=== PATIENT | male | born 1985 | race Caucasian/White ===

== ENCOUNTER 2016-08-30 08:11 | Emergency (ER) | payer BC ==
[2016-08-30 08:23] VITALS: BP 134/87
--- NOTE | 2016-08-30 08:42 | UC ---
Abdominal Pain Male HPI - HPI Summary HPI Summary: The patient comes in today for: 1. Suprapubic abdominal pain: Onset: 2 PM yesterday. Palliative/provocative: Standing and having a bowel movement makes it better. Laying down (back or belly) made it worse. Quality: ache Region: Suprapubic, it radiates to the back and bilateral scrotum. Severity: 3-5/10 Time: Comes and goes Associated symptoms: Dysuria: None. Hematuria: None. Bowel habit change: None. Last BM was this AM--More loose, but not liquid. It was yellow, "paper-looking--likes sheets of paper." Fever: None. Travel: not out of the state. * - History of Current Complaint Chief Complaint: UCAbdominalPain Stated Complaint: ABDOMINAL PAIN Time Seen by Provider: 08/30/16 08:35 Hx Obtained From: Patient - Allergies/Home Medications Allergies/Adverse Reactions: Allergies Allergy/AdvReac Type Severity Reaction Status Date / Time No Known Allergies Allergy Verified 08/30/16 08:18 Home Medications: Home Medications Calcium Carbonate CHEW TAB* [Tums*] 1,000 mg PO ONCE 08/30/16 [History Confirmed 08/30/16] Sertraline* [Zoloft*] 50 mg PO DAILY 08/30/16 [History Confirmed 08/30/16] PMH/Surg Hx/FS Hx/Imm Hx Previously Healthy: No Endocrine History Of: Denies: Diabetes, Thyroid Disease, Hyperthyroidism, Hypothyroidism, Dyslipidemia Cardiovascular History Of: Denies: Cardiac Disorders, Hypertension, Pacemaker/ICD, Myocardial Infarction , Congestive Heart Failure, Atrial Fibrillation, Deep Vein Thrombosis, Bleeding Disorders Respiratory History Of: Denies: COPD, Asthma, Bronchitis, Pneumonia, Pulmonary Embolism GI/ History Of: Denies: Gastroesophageal Reflux, Ulcer, Gastrointestinal Bleed, Gall Bladder Disease, Kidney Stones, Diverticulitis, Renal Disease, Urosepsis Neurological History Of: Denies: TIA, CVA, Dementia, Seizures, Migraine Psychological History Of: Reports: Depression Denies: Anxiety, Bipolar Disorder, Schizophrenia, Post Traumatic Stress Disorder Cancer History Of: Denies: Lung Cancer, Colorectal Cancer, Breast Cancer, Prostate Cancer, Cervical Cancer Other History Of: Negative For: HIV, Hepatitis B, Hepatitis C, Anticoagulant Therapy - Surgical History Surgical History: None - Family History Known Family History: Positive: Cardiac Disease, Hypertension - Social History Occupation: Employed Full-time Alcohol Use: Rare Substance Use Type: None Smoking Status (MU): Never Smoked Tobacco - Immunization History Most Recent Influenza Vaccination: Not the Season Review of Systems Constitutional: Negative Skin: Negative Eyes: Negative ENT: Negative Respiratory: Negative Cardiovascular: Negative Gastrointestinal: Abdominal Pain Genitourinary: Negative All Other Systems Reviewed And Are Negative: Yes Physical Exam Triage Information Reviewed: Yes Appearance: Well-Appearing, No Pain Distress, Well-Nourished Vital Signs: Initial Vital Signs Temp 98.4 F 08/30/16 08:14 Pulse 94 08/30/16 08:14 Resp 16 08/30/16 08:14 BP 134/87 08/30/16 08:14 Pulse Ox 99 08/30/16 08:14 Vital Signs Reviewed: Yes Eyes: Positive: Conjunctiva Clear. Negative: Discharge ENT: Positive: Hearing grossly normal. Negative: Pharyngeal erythema, Nasal congestion, Nasal drainage, TM bulging, TM dull, TM red Dental: Negative: Gross Decay/Caries @, Dental Fracture @ Neck: Positive: Supple, Nontender, No Lymphadenopathy. Negative: Nuchal Rigidity Respiratory: Positive: Chest non-tender, Lungs clear, No respiratory distress, No accessory muscle use. Negative: Rhonchi, Wheezing Cardiovascular: Positive: RRR, No Murmur Abdomen Description: Positive: No Organomegaly, Soft. Negative: Nontender - There was slight tenderness to palpation of the suprapubic area., CVA Tenderness (R), CVA Tenderness (L), Distended, Guarding Musculoskeletal: Positive: Strength Intact, ROM Intact, No Edema Neurological: Positive: Alert, Muscle Tone Normal Psychological: Positive: Age Appropriate Behavior, Consolable Skin: Negative: rashes, breakdown UC Physical Exam Vital Signs On Initial Exam: Initial Vitals Temp Pulse Resp BP Pulse Ox 98.4 F 94 16 134/87 99 08/30/16 08:14 08/30/16 08:14 08/30/16 08:14 08/30/16 08:14 08/30/16 08:14 - Genitalia Exam Male Genitalia: Not Circumcised - If he was circumcised, there is some foreskin left., Other - He has slight tenderness of the left inquinal canal area. With coughing there was a self-reducing bulge at the inquinal ring. THere were no enlarged lymph nodes in either inquinal area. No penile discharge or tenderness or massees. Testes free of masses. No femoral hernias. Male Genitalia Cont.: Bilateral: Testicles Descended, Testicles Non-Tender, Scrotum Without Erythema Diagnostics - Laboratory Diagnostic Studies Completed/Ordered: Urine screen: Specific gravity: 1.030. Leukocytes: 25. Blood: 5-10. Protein: (-). Nitrite: (-). IMPRESSION: WALL THICKENING AND PERICOLONIC INFILTRATION OF FAT AT THE SPLENIC FLEXURE. SUGGESTIVE OF DIVERTICULITIS OF THE SPLENIC FLEXURE. THERE ARE DIVERTICULA IN THE. DESCENDING COLON NOTED. NO EVIDENCE OF PERIDIVERTICULAR ABSCESS IS NOTED. NO EVIDENCE OF OBSTRUCTIVE UROPATHY IS NOTED. Re-Evaluation - Re-Evaluation First Eval Change: Unchanged - Re-evaluation of the patient revealed no suprapubic tenderness, but tenderness of the LUQ. No rebound tenderness. Abd Pain Male Course/Dx - Course Course Of Treatment: Patient was told of the UA result and with his symptoms how he would be a candidate for CT of the abdomen and pelvis to rule out kidney stone. He was agreeable to getting one. - Differential Dx/Clinical Impression Differential Diagnosis/HQI/PQRI: Diverticulitis, Renal Colic Provider Diagnoses: Diverticulitis of the splenic flexure. Discharge - Discharge Plan Condition: Stable Disposition: HOME Patient Education Materials: Diverticulitis (ED) Referrals: Juli Roberts NP [Nurse Practitioner] - 1 Week (Please see your primary care provider in about a week to see how well you are doing. If you get worse, please be seen sooner.)
--- NOTE | 2016-08-30 10:16 | RAD ---
Indication: Left flank pain radiating to the scrotum. CT of the abdomen and pelvis was performed without oral or IV contrast administration. Coronal and sagittal images were obtained. Lung bases demonstrate no pleural fluid, nodules or masses. Heart is of normal size without evidence of pericardial effusion. Liver is normal in size. No focal lesions or intrahepatic ductal dilatation is noted. The gallbladder demonstrates no calcified gallstones. No pericholecystic fluid or wall thickening is noted. The spleen is normal in size. No adrenal masses are noted. The kidneys demonstrate no hydronephrosis. No hydroureter is noted. There is diverticulosis of the descending colon. There is suggestion of wall thickening and pericolonic infiltration of fat surrounding the splenic flexure. This most likely represents diverticulitis without abscess formation rather than epiploic appendicitis. No fluid collection is noted. No dilated loops of bowel are noted. CT of the pelvis demonstrates no pelvic adenopathy. Diverticulosis of the colon is noted in the sigmoid. Beginning bladder is partially collapsed. The prostate is unremarkable. No hernias are noted. IMPRESSION: WALL THICKENING AND PERICOLONIC INFILTRATION OF FAT AT THE SPLENIC FLEXURE SUGGESTIVE OF DIVERTICULITIS OF THE SPLENIC FLEXURE. THERE ARE DIVERTICULA IN THE DESCENDING COLON NOTED. NO EVIDENCE OF PERIDIVERTICULAR ABSCESS IS NOTED. NO EVIDENCE OF OBSTRUCTIVE UROPATHY IS NOTED.
== END 2016-08-30 10:38 | disposition home or self-care (01) ==
LOC: UCCORT 08:11
DX: K57.92 Diverticulitis of intestine, part unspecified, without perforation or abscess without bleeding (principal); F32.9 Major depressive disorder, single episode, unspecified
CPT/HCPCS: 74176; 87086; 99202; G0463

== ENCOUNTER 2019-01-05 09:38 | Emergency (ER) | payer BC ==
[2019-01-05 10:01] VITALS: BP 137/78
--- NOTE | 2019-01-05 10:58 | UC ---
Back Pain HPI - HPI Summary HPI Summary: bilateral lower back pain x 1 day pulled his back yesterday as her was standing pain is 7 out of 10 , dull, radiation to his thighs bilaterally pain is worse with movements, better with rest, no n/v/d/c, no urinary sx, no fever, no chills - History of Current Complaint Chief Complaint: UCBackPain Stated Complaint: LOWER BACK PAIN Time Seen by Provider: 01/05/19 10:32 Hx Obtained From: Patient Onset/Duration: Gradual Onset, Lasting Days - 1, Still Present Timing: Constant Severity Initially: Moderate Severity Currently: Severe Pain Intensity: 8 Back Pain: Is Discrete @ - bilateral lower back Character: Dull, Aching, Spasmodic Aggravating Factor(s): Movement, Lifting, Bending, Walking, Cough Alleviating Factor(s): Rest Associated Signs And Symptoms: Negative: Swelling, Redness, Bruising, Fever, Weakness, Numbness, Tingling, Abdominal Pain, Flank Pain, Weight Loss - Allergies/Home Medications Allergies/Adverse Reactions: Allergies Allergy/AdvReac Type Severity Reaction Status Date / Time No Known Allergies Allergy Verified 01/05/19 10:01 PMH/Surg Hx/FS Hx/Imm Hx Previously Healthy: Yes Other History Of: Negative For: HIV, Hepatitis B, Hepatitis C, Anticoagulant Therapy - Surgical History Surgical History: None - Family History Known Family History: Positive: Cardiac Disease, Hypertension - Social History Alcohol Use: Rare Substance Use Type: Excessive Caffeine Substance Use Comment - Amount & Last Used: 3 mountain dew Smoking Status (MU): Never Smoked Tobacco - Immunization History Most Recent Influenza Vaccination: Not the Season Review of Systems All Other Systems Reviewed And Are Negative: Yes Constitutional: Positive: Negative Skin: Positive: Negative Eyes: Positive: Negative ENT: Positive: Negative Respiratory: Positive: Negative Is Patient Immunocompromised?: No Physical Exam Triage Information Reviewed: Yes Appearance: Well-Appearing, Well-Nourished, Pain Distress Vital Signs: Initial Vital Signs Temp 97.5 F 01/05/19 09:56 Pulse 92 01/05/19 09:56 Resp 16 01/05/19 09:56 BP 137/78 01/05/19 09:56 Pulse Ox 99 01/05/19 09:56 Vital Signs Reviewed: Yes Eyes: Positive: Conjunctiva Clear ENT: Positive: Normal ENT inspection, Hearing grossly normal, Pharynx normal Neck: Positive: Supple, Nontender, No Lymphadenopathy Respiratory: Positive: Chest non-tender, Lungs clear, Normal breath sounds Cardiovascular: Positive: RRR, No Murmur, Pulses Normal Abdomen Description: Positive: Nontender, Soft. Negative: CVA Tenderness (R), CVA Tenderness (L), Distended, Guarding Bowel Sounds: Positive: Present Musculoskeletal: Positive: Other: - lower back : no swelling, no erythema, no tenderness, pain with flexion and extension , Neurological Exam: Normal Neurological: Positive: Alert Skin Exam: Normal Back Pain Course/Dx - Differential Dx/Diagnosis Provider Diagnosis: Strain of fascia of lower back Discharge - Sign-Out/Discharge Documenting (check all that apply): Patient Departure All imaging exams completed and their final reports reviewed: No Studies - Discharge Plan Condition: Stable Disposition: HOME Prescriptions: Cyclobenzaprine TAB* [Flexeril 10 MG TAB*] 10 mg PO BID PRN #20 tab PRN Reason: Pain Naproxen [Naproxen 500 mg tab] 500 mg PO BID #20 tablet. Patient Education Materials: Low Back Strain (ED) Referrals: Juli Alejandra MD [Primary Care Provider] - 7 Days - Billing Disposition and Condition Condition: STABLE Disposition: Home
== END 2019-01-05 10:59 | disposition home or self-care (01) ==
LOC: UCCORT 09:38
DX: S39.012A Strain of muscle, fascia and tendon of lower back, initial encounter (principal); X58.XXXA Exposure to other specified factors, initial encounter; Y93.89 Activity, other specified; Y92.9 Unspecified place or not applicable
CPT/HCPCS: 99212; G0463

== ENCOUNTER 2019-02-09 19:14 | Emergency (ER) | payer BC ==
[2019-02-09 19:48] VITALS: BP 150/87
--- NOTE | 2019-02-09 20:01 | UC ---
Back Pain HPI - HPI Summary HPI Summary: 33-year-old male who had back pain over a month ago and was treated with Flexeril and Aleve. He states since then the pain had completely relieved however then he went on a 5 1/2 hour car trip and started experiencing some left buttock pain radiating into his left leg. He denies any difficulty urinating. He denies any saddle anesthesia and no numbness in his extremities. - History of Current Complaint Chief Complaint: UCBackPain Stated Complaint: LOW BACK PAIN Time Seen by Provider: 02/09/19 19:39 Hx Obtained From: Patient Onset/Duration: Gradual Onset Timing: Constant Severity Initially: Moderate Severity Currently: Moderate Pain Intensity: 8 Character: Sharp, Aching Aggravating Factor(s): Movement, Other - Excessive sitting. Alleviating Factor(s): Nothing Associated Signs And Symptoms: Negative: Numbness, Tingling, Abdominal Pain, Flank Pain, Bladder Incontinence, Bowel Incontinence Related History: Similar Episode Dx As - Low back strain and sciatica. - Allergies/Home Medications Allergies/Adverse Reactions: Allergies Allergy/AdvReac Type Severity Reaction Status Date / Time No Known Allergies Allergy Verified 02/09/19 19:38 Home Medications: Home Medications Naproxen Sodium [Aleve] 220 mg PO Q6H PRN 02/09/19 [History Confirmed 02/09/19] PMH/Surg Hx/FS Hx/Imm Hx Previously Healthy: Yes Other History Of: Negative For: HIV, Hepatitis B, Hepatitis C, Anticoagulant Therapy - Surgical History Surgical History: None - Family History Known Family History: Positive: Cardiac Disease, Hypertension - Social History Alcohol Use: Rare Substance Use Type: Excessive Caffeine Substance Use Comment - Amount & Last Used: 3 mountain dew/daily Smoking Status (MU): Never Smoked Tobacco - Immunization History Most Recent Influenza Vaccination: Not the 2016/2016 Season Review of Systems All Other Systems Reviewed And Are Negative: Yes Motor: Positive: Negative Neurovascular: Positive: Negative Musculoskeletal: Positive: Negative, Other: - Pain in left lower back and left buttock. Neurological: Positive: Negative Is Patient Immunocompromised?: No Physical Exam Triage Information Reviewed: Yes Appearance: Well-Appearing, No Pain Distress, Well-Nourished Vital Signs: Initial Vital Signs Temp 98.7 F 02/09/19 19:43 Pulse 92 02/09/19 19:43 Resp 24 02/09/19 19:43 BP 150/87 02/09/19 19:43 Pulse Ox 99 02/09/19 19:43 Vital Signs Reviewed: Yes Respiratory: Positive: Lungs clear, Normal breath sounds, No respiratory distress, No accessory muscle use Cardiovascular: Positive: RRR, No Murmur, Pulses Normal, Brisk Capillary Refill Abdomen Description: Positive: Nontender, No Organomegaly, Soft. Negative: CVA Tenderness (R), CVA Tenderness (L) Bowel Sounds: Positive: Present Musculoskeletal: Positive: Strength Intact, ROM Intact, No Edema, Other: - Pain in left buttock on firm palpation, positive left straight leg raise. Peripheral pulses neuro sensation capillary refill. Neurological: Positive: Alert, Muscle Tone Normal Psychological Exam: Normal Skin Exam: Normal Back Pain Course/Dx - Course Course Of Treatment: Patient has been somewhat comfortable here. He refuses an injection of Toradol. He prefers to continue with the naproxen twice a day but would like another prescription for the Flexeril because asked what worked for him well before. - Differential Dx/Diagnosis Provider Diagnosis: Left sided sciatica Discharge - Sign-Out/Discharge Documenting (check all that apply): Patient Departure All imaging exams completed and their final reports reviewed: No Studies - Discharge Plan Condition: Fair Disposition: HOME Prescriptions: Cyclobenzaprine TAB* [Flexeril 10 MG TAB*] 10 mg PO TID PRN #21 tab PRN Reason: Pain Patient Education Materials: Sciatica (ED) Referrals: Jane Wiggins PA [Primary Care Provider] - Additional Instructions: Avoid prolonged sitting and prolonged standing. Avoid movements that cause pain. Do not drink alcohol, drive or operate machinery while you're taking the muscle relaxant. Take Aleve 2 tablets twice a day for pain. Definite follow- up with your primary care provider if no improvement in 3 or 4 days or follow- up with a back specialist as we discussed. - Billing Disposition and Condition Condition: FAIR Disposition: Home
== END 2019-02-09 20:17 | disposition home or self-care (01) ==
LOC: UCCORT 19:14
DX: M54.32 Sciatica, left side (principal)
CPT/HCPCS: 99212; G0463